=== PATIENT | male | born 1995 | race Caucasian/White ===

== ENCOUNTER 2017-11-01 09:24 | Emergency (ER) | payer OTHER ==
[~2017-11-01] VITALS: Ht 172.7 cm; Wt 70.0 kg
[~2017-11-01 09:24] MED LIST: AMOX TR-K CLV1 EAC4 PO; BACTRIM,SEPT1 TABLET PO; FLEXERIL10 MG PO; MOTRIN600 MG PO; NORCO 5/3251 TABLET PO; PREDNISONE50 MG PO; ZOFRAN ODT4 MG PO; ZOFRAN4 MG PO
[2017-11-01 11:47] LABS: HEMATOCRIT 50.4 % (38.0-50.0); HEMOGLOBIN 18.2 G/DL (12.5-16.6); MCH 30.4 PG (29.0-34.0); MCHC 36.1 G/DL (30.0-36.0); MCV 84.1 FL (86-99); PLATELET COUNT 316 K/uL (156-360); RBC DIS.WIDTH-CV 11.7 % (11.8-14.6); RBC DIS.WIDTH-SD 35.5 % (39-53); RED BLOOD COUNT 5.99 M/uL (4.00-5.50); WHITE BLOOD COUNT 19.2 K/uL (4.1-10.2)
[2017-11-01 12:49] LABS: CHLORIDE 104 mEq/L (99-109); POTASSIUM 4.6 mEq/L (3.7-5.4); SODIUM 138 mEq/L (136-147)
[2017-11-01 12:50] LABS: GLUCOSE 137 mg/dL (70-99)
[2017-11-01 12:54] LABS: CREATININE 1.1 mg/dL (0.6-1.3); GFR ESTIMATE (CALCULATED) > 59 mL/min/ (58.99-99999)
[2017-11-01 12:55] LABS: UREA NITROGEN (BUN) 26 mg/dL (9-23)
[2017-11-01 12:56] LABS: ALBUMIN 4.5 g/dL (3.2-4.8)
[2017-11-01 13:02] LABS: ALKALINE PHOSPHATASE 82 IU/L (3-129)
[2017-11-01 13:04] LABS: AST (GOT) 17 IU/L (2-34); DIRECT BILIRUBIN 0.4 mg/dL (0.0-0.3)
[2017-11-01 13:05] LABS: ALT (GPT) 19 IU/L (3-49); LIPASE 15 U/L (1.0-51.0)
[2017-11-01] MEDS ORDERED: ZOFRAN ODT4 MG PO (14:16)
[2017-11-01] MEDS ORDERED: BENTYL10 MG PO (14:16)
[2017-11-01 14:17] LABS: APPEARANCE SL.HAZY ((CLEAR)); BILIRUBIN NEGATIVE; BLOOD SMALL; COLOR YELLOW ((YELLOW)); GLUCOSE (STRIP) NEGATIVE; KETONES NEGATIVE; LEUKOCYTES NEGATIVE; NITRITE NEGATIVE; PROTEIN (STRIP) 30; UROBILINOGEN 0.2 MG/DL (0.2-1.0)
[2017-11-01 14:21] LABS: BACTERIA RARE /HPF; EPITHELIAL CELLS NONE SEEN /HPF; MUCUS 1+ /LPF; RED BLOOD CELLS 0-5 /HPF (0-5); UCUL ADDED? NO; WHITE BLOOD CELLS 0-5 /HPF (0-5)
[2017-11-01 14:35] VITALS: BP 97/56
== END 2017-11-01 14:35 | disposition home or self-care (01) ==
LOC: EME 09:24
PROVIDERS: Nurse Practitioner Family
DX: A08.4 Viral intestinal infection, unspecified (principal); R11.2 Nausea with vomiting, unspecified; Z88.1 Allergy status to other antibiotic agents
CPT/HCPCS: 80048; 80076; 81003; 83690; 85027; 99281; 99284; J1885; J2405; J7030

== ENCOUNTER 2017-11-22 09:19 | Emergency (ER) | payer OTHER ==
[~2017-11-22] VITALS: Ht 172.7 cm; Wt 69.1 kg
[~2017-11-22 09:19] MED LIST changes: +BENTYL10 MG PO
[2017-11-22] MEDS ORDERED: FLEXERIL10 MG PO (10:50)
[2017-11-22] MEDS ORDERED: NORCO 5/3251 TABLET PO (10:50)
[2017-11-22 10:55] LABS: ALBUMIN 4.7 g/dL (3.2-4.8)
[2017-11-22 10:56] LABS: CHLORIDE 104 mEq/L (99-109); POTASSIUM 4.3 mEq/L (3.7-5.4); SODIUM 139 mEq/L (136-147)
[2017-11-22 10:58] LABS: GLUCOSE 97 mg/dL (70-99); TOTAL PROTEIN 7.6 g/dL (6.4-8.3)
[2017-11-22 11:00] LABS: TOTAL BILIRUBIN 0.8 mg/dL (0.0-1.0)
[2017-11-22 11:01] LABS: ALKALINE PHOSPHATASE 94 IU/L (3-129)
[2017-11-22 11:02] LABS: CREATININE 1.2 mg/dL (0.6-1.3); GFR ESTIMATE (CALCULATED) > 59 mL/min/ (58.99-99999)
[2017-11-22 11:03] LABS: AST (GOT) 21 IU/L (2-34); UREA NITROGEN (BUN) 16 mg/dL (9-23)
[2017-11-22 11:04] LABS: ALT (GPT) 19 IU/L (3-49)
[2017-11-22 11:10] LABS: HEMATOCRIT 44.6 % (38.0-50.0); HEMOGLOBIN 15.7 G/DL (12.5-16.6); MCH 29.9 PG (29.0-34.0); MCHC 35.2 G/DL (30.0-36.0); PLATELET COUNT 328 K/uL (156-360); RBC DIS.WIDTH-CV 11.7 % (11.8-14.6); RBC DIS.WIDTH-SD 35.9 % (39-53); RED BLOOD COUNT 5.25 M/uL (4.00-5.50); WHITE BLOOD COUNT 5.8 K/uL (4.1-10.2)
[2017-11-22 11:55] VITALS: BP 130/79
== END 2017-11-22 11:58 | disposition home or self-care (01) ==
LOC: EME 09:19
PROVIDERS: Emergency Medicine Emergency Medical Services
DX: S00.83XA Contusion of other part of head, initial encounter (principal); S60.221A Contusion of right hand, initial encounter; S09.90XA Unspecified injury of head, initial encounter; R07.89 Other chest pain; V86.56XA Driver of dirt bike or motor/cross bike injured in nontraffic accident, initial encounter; Y93.55 Activity, bike riding; Z88.0 Allergy status to penicillin
CPT/HCPCS: 70450; 70486; 71046; 80053; 85027; 99281; 99284